=== PATIENT | male | born 2000 | race Caucasian/White ===

== ENCOUNTER 2021-03-23 14:23 | Emergency (ER) | payer SELFPAY ==
[~2021-03-23] VITALS: Ht 172.7 cm; Wt 64.0 kg
[2021-03-23] MEDS ORDERED: ASPIRIN 81MG TABLET PO ONE (15:30)
[2021-03-23 15:39] LABS: BASOPHILS % 0.4 % (0.0-2.0); EOSINOPHILS % 4.9 % (0.0-5.0); HEMATOCRIT. 42.9 % (42.0-52.0); HEMOGLOBIN. 14.8 g/dL (14.0-18.0); LYMPHOCYTES % 15.2 % (20.0-50.0); MEAN CORPUSCULAR HEMOGLOBIN 28.6 pg (28.0-32.0); MEAN CORPUSCULAR VOLUME 83.1 fL (80.0-94.0); MEAN PLATELET VOLUME 9.1 fl (7.4-10.4); MONOCYTES % 6.5 % (2.0-8.0); PLATELET 199 x1000/uL (130-400); RED BLOOD CELL COUNT 5.16 mill/uL (4.7-6.1); RED CELL DISTRIBUTION WIDTH 12.7 % (11.6-14.6)
[2021-03-23 15:48] LABS: CHLORIDE 111 mEq/L (98-107)
[2021-03-23 15:54] LABS: ETHANOL BLOOD < 10 mg/dL
[2021-03-23] MEDS ORDERED: ASPI-1497 MT (18:32)
[2021-03-23 18:45] VITALS: BP 130/74
== END 2021-03-23 18:46 | disposition home or self-care (01) ==
LOC: ER 14:23
DX: I48.91 Unspecified atrial fibrillation (principal); J45.909 Unspecified asthma, uncomplicated
CPT/HCPCS: 36415; 71045; 80053; 80320; 83880; 84484; 85025; 85379; 93005; 99285; G0480